=== PATIENT | female | born 1990 | race Caucasian/White ===

== ENCOUNTER 2017-08-17 01:50 | Outpatient (CLI) | payer OTHER ==
[2017-08-17 03:45] LABS: ADD UMIC NO; UR ASCORBIC ACID NEGATIVE (NEGATIVE); UR BILIRUBIN (Dip) NEGATIVE (NEGATIVE); UR BLOOD (Dip) NEGATIVE (NEGATIVE); UR CLARITY CLEAR (CLEAR); UR COLOR YELLOW (YELLOW); UR GLUCOSE (Dip) NEGATIVE (NEGATIVE); UR KETONES (Dip) NEGATIVE (NEGATIVE); UR LEUKOCYTE ESTERASE (Dip) NEGATIVE Leu/ul (NEGATIVE); UR NITRITE (Dip) NEGATIVE (NEGATIVE); UR SPECIFIC GRAVITY (Dip) 1.014 (1.003-1.030); UR TOTAL PROTEIN (Dip) NEGATIVE (NEGATIVE); UR UROBILINOGEN (Dip) NEGATIVE (NEGATIVE)
== END 2017-08-17 04:44 | disposition home or self-care (01) ==
LOC: OBT 01:50 → L-D 01:50 → OBT 04:44
DX: O47.1 False labor at or after 37 completed weeks of gestation (principal); Z3A.37 37 weeks gestation of pregnancy
CPT/HCPCS: 76815; 76818; 81003; 87086

== ENCOUNTER 2017-09-07 09:24 | Inpatient (IN) | payer OTHER ==
[2017-09-07] MEDS ORDERED: MISOPROSTOL 200 MCG TAB PR ×2 (10:00→20:00)
[2017-09-07] MEDS ORDERED: METHYLERGONOVINE 0.2 MG INJ IM ×2 (10:00→20:00)
[2017-09-07] MEDS ORDERED: OXYTOCIN 30 UNITS/LR 500 ML IV ×4 (10:00→20:00)
[2017-09-07] MEDS ORDERED: LIDOCAINE 1% (MPF) 30 ML INJ INJ (10:00)
[2017-09-07] MEDS ORDERED: CARBOPROST 250 MCG INJ IM ×2 (10:00→20:00)
[2017-09-07] MEDS: LACTATED RINGER'S 1,000 ML IV ×3 (10:11→17:26)
[2017-09-07] MEDS: MISOPROSTOL 25 MCG CAPSULE VAG (10:40)
[2017-09-07] MEDS: AMPICILLIN 2 GM/NS (PMX) 100 ML IV (10:40)
[2017-09-07 11:45] LABS: INR 0.93; PROTIME 12.6 Sec (11.9-14.9)
[2017-09-07 11:46] LABS: PARTIAL THROMBOPLASTIN TIME 24.5 Sec (25.0-35.0)
[2017-09-07 12:28] LABS: HEPATITIS B SURFACE ANTIGEN NEGATIVE (NEGATIVE)
[2017-09-07 13:37] LABS: ADD MAN DIFF? NO
[2017-09-07 13:40] LABS: WHITE BLOOD COUNT 6.7 10^3/ul (4.8-10.8)
[2017-09-07 13:40] LABS: BASOPHILS % 0.3 % (0.0-2.0); EOSINOPHILS % 0.3 % (0.0-7.0); HEMATOCRIT 28.6 % (37.0-47.0); HEMOGLOBIN 8.9 g/dl (12.0-16.0); LYMPHOCYTES # 1.8 10^3/ul (0.8-2.9); LYMPHOCYTES % 26.4 % (15.0-51.0); MEAN CORPUSCULAR HEMOGLOBIN 27.4 pg (29.0-33.0); MEAN CORPUSCULAR HGB CONC 31.1 g/dl (32.0-37.0); MONOCYTE # 0.4 10^3/ul (0.3-0.9); MONOCYTES % 6.2 % (0.0-11.0); NEUTROPHIL # 4.5 10^3/ul (1.6-7.5); NEUTROPHILS % 66.2 % (39.0-77.0); PLATELET COUNT 180 10^3/UL (140-415); RED BLOOD COUNT 3.25 10^6/ul (4.20-5.40); RED CELL DISTRIBUTION WIDTH 15.3 % (11.5-14.5)
[2017-09-07] MEDS: AMPICILLIN 1 GM/NS (PMX) 50 ML IV ×2 (14:01→18:25)
[2017-09-07] MEDS: OXYTOCIN 30 UNITS/LR 500 ML IV ×2 (14:11→20:39)
[2017-09-07] MEDS ORDERED: FENTAnyl 2MCG/ML-ROPIV 0.2% 100 ML (15:22)
[2017-09-07] MEDS ORDERED: NALOXONE (0.4 MG/ML) INJ IV (16:00)
[2017-09-07] MEDS ORDERED: FENTAnyl 2MCG/ML-ROPIV 0.2% 100 ML BAG EPI (16:00)
[2017-09-07] MEDS ORDERED: ONDANSETRON 4 MG INJ IV (20:00)
[2017-09-07] MEDS ORDERED: SENNA/DOCUSATE NA (8.6MG/50MG) TAB PO (20:00)
[2017-09-07] MEDS ORDERED: HYDROCODONE/APAP (5/325) TAB PO (20:00)
[2017-09-07] MEDS ORDERED: LANOLIN 7 GM TUBE TOP (20:00)
[2017-09-07 21:23] LABS: RAPID PLASMA REAGIN NONREACTIVE (NR)
[2017-09-07] MEDS: WITCH HAZEL/GLYCERIN PAD PR (23:03)
[2017-09-07] MEDS: BENZOCAINE 20% 56 ML SPRAY TOP (23:03)
[2017-09-07] MEDS: IBUPROFEN 600 MG TAB PO (23:47)
[2017-09-08] MEDS: NACL 0.9% 3 ML SYG IV (05:51)
[2017-09-08] MEDS: IBUPROFEN 600 MG TAB PO ×3 (05:51→16:43)
[2017-09-08 09:59] LABS: ADD MAN DIFF? NO
[2017-09-08 10:06] LABS: WHITE BLOOD COUNT 9.8 10^3/ul (4.8-10.8)
[2017-09-08 10:06] LABS: BASOPHILS % 0.3 % (0.0-2.0); EOSINOPHILS % 0.3 % (0.0-7.0); HEMOGLOBIN 10.2 g/dl (12.0-16.0); LYMPHOCYTES # 2.1 10^3/ul (0.8-2.9); LYMPHOCYTES % 21.1 % (15.0-51.0); MEAN CORPUSCULAR HEMOGLOBIN 28.1 pg (29.0-33.0); MEAN CORPUSCULAR HGB CONC 31.9 g/dl (32.0-37.0); MEAN CORPUSCULAR VOLUME 88.2 fl (82.0-101.0); MEAN PLATELET VOLUME 11.1 fl (7.4-10.4); MONOCYTE # 0.6 10^3/ul (0.3-0.9); MONOCYTES % 6.3 % (0.0-11.0); NEUTROPHILS % 71.7 % (39.0-77.0); PLATELET COUNT 225 10^3/UL (140-415); RED BLOOD COUNT 3.63 10^6/ul (4.20-5.40); RED CELL DISTRIBUTION WIDTH 15.2 % (11.5-14.5)
[2017-09-08] MEDS: BENZOCAINE 20% 56 ML SPRAY TOP (16:43)
[2017-09-08] MEDS: HYDROCODONE/APAP (5/325) TAB PO (16:43)
== END 2017-09-08 19:20 | disposition home or self-care (01) | DRG 775 ==
LOC: L-D 09:24 → PP1 22:23
PROVIDERS: Obstetrics & Gynecology
PROC: 10E0XZZ Delivery of Products of Conception, External Approach (ICD-10-PCS; principal; 2017-09-07 08:15)
PROC: 0KQM0ZZ Repair Perineum Muscle, Open Approach (ICD-10-PCS; 2017-09-07 08:15)
PROC: 10907ZC Drainage of Amniotic Fluid, Therapeutic from Products of Conception, Via Natural or Artificial Opening (ICD-10-PCS; 2017-09-07 08:15)
PROC: 3E0P7VZ Introduction of Hormone into Female Reproductive, Via Natural or Artificial Opening (ICD-10-PCS; 2017-09-07 08:15)
DX: O48.0 Post-term pregnancy (principal); O99.824 Streptococcus B carrier state complicating childbirth; O99.02 Anemia complicating childbirth; D64.9 Anemia, unspecified; O70.1 Second degree perineal laceration during delivery; Z3A.40 40 weeks gestation of pregnancy; Z37.0 Single live birth
CPT/HCPCS: 62319; 85025; 85610; 85730; 86592; 86850; 86900; 86901; 87340